=== PATIENT | female | born 1945 | race Caucasian/White ===

== ENCOUNTER 2018-03-30 07:48 | Day surgery (SDC) | payer OTHER, MEDICARE ==
[2018-03-28 11:34] VITALS: BMI 36.6
[2018-03-30] MEDS ORDERED: CYCLOPENTOLATE 2% OPHTH SOLN 2 ML BOTTLE ONE (08:17)
[2018-03-30] MEDS ORDERED: PHENYLEPHRINE 2.5% OPHTH SOLN 15 ML BOTTLE ONE (08:17)
[2018-03-30] MEDS ORDERED: TROPICAMIDE 1% OPHTH SOLN 15 ML BOTTLE ONE (08:17)
[2018-03-30] MEDS ORDERED: CIPROFLOXACIN 0.3% EYE DROPS 5 ML BOTTLE ONE (08:17)
[2018-03-30] MEDS ORDERED: LIDOCAINE 1% P/F 10 MG/ML VIAL ONE (09:46)
[2018-03-30] MEDS ORDERED: CARBACHOL 0.01% INTRA-OCULAR 1.5 ML VIAL ONE (09:47)
[2018-03-30] MEDS ORDERED: NEO/POLYMYX B SULF/DEXAMETH OPHTHALMIC 5ML BOTTLE ONE (09:47)
[2018-03-30] MEDS ORDERED: TETRACAINE 0.5% OPHTH SOLN 2 ML BOTTLE ONE (09:47)
[2018-03-30] MEDS ORDERED: BSS (NA/CA/MG/K) BALANCED SALT SOLUTION OPHTH SOLN 15 ML BOTTLE ONE (09:47)
[2018-03-30] MEDS ORDERED: MIDAZOLAM HCL 2 MG/2 ML SINGLE DOSE VIAL ONE (10:00)
[2018-03-30 10:56] VITALS: TEMP 97.9
[2018-03-30 11:12] VITALS: BP 143/60; PULSE 69
[2018-03-30] MEDS ORDERED: ACETAMINOPHEN 325 MG TABLET (FP) PO PRN (11:55)
[2018-03-30] MEDS ORDERED: ONDANSETRON 4 MG/2 ML VIAL IVPUSH PRN (11:55)
[2018-03-30] MEDS ORDERED: LACTATED RINGERS SOLUTION 1,000 ML IV SCH (12:00)
--- NOTE | 2018-03-31 12:52 | OP ---
DATE OF OPERATION: 03/30/2018 OPERATIVE PROCEDURE: Lens Phacoemulsification with Posterior Chamber Intraocular Lens Placement Left Eye PREOPERATIVE DIAGNOSIS: Visually Significant Cataract of Left Eye POSTOPERATIVE DIAGNOSIS: Visually Significant Cataract of Left Eye SURGEON: Carlos Hansen M.D. ANESTHESIA: MAC PROCEDURE: The patient was brought to the operating room and placed under monitored anesthesia care by Anesthesia. A drop of Tetracaine was then placed over the left eye. The patient was then prepped and draped in the usual sterile manner. A speculum was then placed over the left eye. The eye was then well irrigated with copious amounts of BSS (balanced salt solution). The operating microscope was then moved into position. A paracentesis was performed using a 15 degree blade. At this point 0.5 mL of 1% preservative-free lidocaine was injected into the anterior chamber. Amvisc plus was then injected into the anterior chamber. A clear corneal incision was then formed using a 2.2 mm keratome. A capsulorrhexis was then performed in a continuous circular fashion beginning with a cystotome, completed with an Utratas forceps. Hydrodissection was then performed using BSS on a cannula. The phaco probe was then introduced through the corneal wound and the cataract was removed using the phaco chop technique. Approximately 3 seconds of absolute phaco time was used. The remaining cortex was then removed using irrigation and aspiration with an I/A probe. The capsule was then filled with regular Amvisc and the capsule was noted to be intact. A previously selected foldable posterior chamber intraocular lens was then injected into the capsule through the corneal wound using a lens injector. It was then dialed into position using a Sinskey hook. The Amvisc was then removed using irrigation and aspiration. Miostat was then injected through the paracentesis to constrict the pupil. The paracentesis and corneal wound were then hydrated and noted to be water tight. A drop of Maxitrol was then placed over the eye. The speculum was removed and clear shield was taped over the eye. The patient tolerated the procedure well and there were no surgical complications. The patient was asked to follow up in my office the next day. CARLOS HANSEN M.D. ARIELLA/[id number]
== END 2018-03-30 11:30 | disposition home or self-care (01) ==
LOC: FASU 07:48
PROVIDERS: ATTEND Ophthalmology
PROC: 08RK3JZ Replacement of Left Lens with Synthetic Substitute, Percutaneous Approach (ICD-10-PCS; principal; 2018-03-30 10:24)
DX: H26.8 Other specified cataract (principal)

== ENCOUNTER 2018-04-01 08:16 | Emergency (ER) | payer OTHER, MEDICARE ==
--- NOTE | 2018-04-01 08:19 | PDOC ---
History of Present Illness - General Chief Complaint: Nasal Bleeding Stated Complaint: NOSE BLEED History Source: Patient, EMS, Family Exam Limitations: No Limitations - History of Present Illness Initial Comments: 04/01/18 08:32 72 yof with h/o HTN, HLD, CAD s/p coronary bypass, arthritis s/p THR, COPD, NHL on IVIG tx, cataracts presenting with acute onset of right sided epistaxis this morning at 630AM, since stopped with compression. she states she woke up and was coming downstairs, when her nose started to bleed. episode lasted x 30 minutes after compression. h/o nosebleeds, but not this severe. she has been experiencing URI sx and congestion/cough x 1 week. she has been blowing her nose. denies digital manipulation. of note, 3 days ago she had left eye cataract surgery, uncomplicated. she notes no use of plavix or NOACS/warfarin. only uses ASA. No new changes in medications. Allergies: None Past Medical History: HTN, HLD, CAD s/p coronary bypass, arthritis s/p THR, COPD , NHL on IVIG tx Social history: Lives with family. No tobacco, ETOH or drug use. Surgical history: cataract surgery, THR, coronary bypass. ROS General Medical GENERAL/CONSTITUTIONAL: No fever or chills. No weakness. no sweats. HEAD, EYES, EARS, NOSE AND THROAT: No change in vision or hearing. No ear pain or discharge. No sore throat or mouth pain. No difficulty swallowing. + congestion. +epistaxis. CARDIOVASCULAR: No chest pain or palpitations, syncope or edema. RESPIRATORY: No SOB, hemoptysis. +mild cough GASTROINTESTINAL No nausea/vomiting. No diarrhea or constipation. no abdominal pain MUSCULOSKELETAL: No joint or muscle swelling or pain. No neck or back pain. SKIN: No rash or changes in skin color or lesions. NEUROLOGIC: No headache, or LOC. no neurologic changes. HEMATOLOGIC/LYMPHATIC: No anemia, easy bruising/bleeding, or history of blood clots. ALLERGIC/IMMUNOLOGIC: No allergies All other systems reviewed and negative, or as documented in HPI. PE: General: Well appearing, awake and alert, NAD. HEENT: NCAT, PERRL, EOMI, clear conjunctiva, anicteric, moist mucus membranes, clear oropharynx. +right nare with dried blood, no active epistaxis on close evaluation. Airway patent, normal phonation. Uvula midline. No sinus tenderness , Neck: neck supple, FROM Resp: CTAB, normal and even respirations, no respiratory distress CVS: RRR, no murmurs, 2+ peripheral pulses throughout, no peripheral edema Abdomen: soft, NTND, no rebound or guarding. No CVAT. Back: nontender, normal inspection and ROM MSK: no edema, MORRISON x4, ROM intact. Neuro: alert Skin: warm and well perfused, cap refill <2 sec, normal color 04/01/18 08:32 04/01/18 08:37 Past History - Past Medical History Allergies/Adverse Reactions: Allergies Allergy/AdvReac Type Severity Reaction Status Date / Time No Known Allergies Allergy Verified 04/01/18 08:19 Home Medications: Ambulatory Orders Acyclovir [Zovirax -] 400 mg PO BID 03/28/18 Albuterol Sulfate Inhaler - [Ventolin Hfa Inhaler -] 1 - 2 inh PO QID PRN Aspirin [Adult Aspirin] 81 mg PO DAILY 03/28/18 Atorvastatin Ca [Lipitor] 40 mg PO HS 03/28/18 Losartan Potassium [Cozaar -] 50 mg PO DAILY 03/28/18 Metoprolol Succinate [Toprol Xl] 25 mg PO HS 03/28/18 Sertraline HCl [Zoloft] 100 mg PO DAILY 03/28/18 Anemia: No Asthma: Yes Cancer: Yes (LYMPHOMA) Cardiac Disorders: Yes (CAD) CVA: No COPD: No CHF: No Dementia: No Diabetes: No GI Disorders: No Disorders: No HTN: Yes Hypercholesterolemia: No Liver Disease: No Seizures: No Thyroid Disease: No - Surgical History Abdominal Surgery: No Appendectomy: No Cardiac Surgery: Yes (CABG 2011-) Cholecystectomy: No Lung Surgery: No Neurologic Surgery: No Orthopedic Surgery: Yes (Right Hip Replacement 2015) - Suicide/Smoking/Psychosocial Hx Smoking Status: No Smoking History: Former smoker Years of Tobacco Use: 25 Have you smoked in the past 12 months: No Number of Cigarettes Smoked Daily: 40 If you are a former smoker, when did you quit?: 2002 Hx Alcohol Use: No Drug/Substance Use Hx: No Substance Use Type: None Hx Substance Use Treatment: No Medical Decision Making - Medical Decision Making 04/01/18 08:36 hpi as documented most likely anterior epistaxis, no e/o posterior epistaxis, clear oropharynx. VS reviewed, mildly hypertensive, but did not take AM meds; otherwise wnl, no hypoxia or respiratory distress. no blood thinners or antiplatelet agents, only ASA epistaxis controlled prior to presentation via EMS. likely sinus congestion/cough and URI sx as precipitant as well as recent cold/ dry weather leading to frail capillaries bleeding has been controlled without recurrence here on close monitoring and observation in the ED x 1 hours. supportive care, avoid digital manipulation and heavy nose blowing compression if bleeding recurs, return if bleeding worsens, syncope, cp/sob or dizziness. nasal saline sprays to moisturize passages, OTC med QID, also available with nasal spray bottles moisturized/humidified air. ENT referral, PCP followup as needed. Pt to be discharged in stable condition. Patient and family made aware of impression and plan, return precautions discussed (including but not limited to worsening pain or symptoms), fevers, or signs of infection, chest pain, respiratory distress, inability to tolerate oral intake, dehydration, syncope, or neurologic changes). Follow up with PMD and/or specialist as recommended, follow up information provided, take medications as instructed for duration of time. continue with supportive care, avoid triggers and precipitants. Patient does not suffer from an acute life-threatening medical condition at this time she is safe for outpatient follow-up. 04/01/18 08:41 04/01/18 09:03 *DC/Admit/Observation/Transfer Diagnosis at time of Disposition: Right-sided epistaxis - Discharge Dispostion Disposition: HOME Condition at time of disposition: Stable Decision to Admit order: No - Referrals Referrals: Sajan Meek MD [Staff Physician] - - Patient Instructions Printed Discharge Instructions: DI for Nosebleed Additional Instructions: supportive care, avoid digital manipulation and heavy nose blowing with your cold. compression over nasal bridge if bleeding recurs, return if bleeding worsens, syncope/passing out, chest pain, respiratory distress or dizziness. nasal saline sprays to moisturize passages, four times a day, also available with nasal spray bottles over the counter, some have been provided to you as well. moisturized/humidified air. ENT referral given, primary doctor followup as well. - Post Discharge Activity
[2018-04-01 08:24] VITALS: BP 158/68; PULSE 83; TEMP 98.8; BMI 29.1
== END 2018-04-01 09:21 | disposition home or self-care (01) ==
LOC: FER 08:16
DX: R04.0 Epistaxis (principal); J44.9 Chronic obstructive pulmonary disease, unspecified; I10 Essential (primary) hypertension; E78.5 Hyperlipidemia, unspecified; I25.10 Atherosclerotic heart disease of native coronary artery without angina pectoris
CPT/HCPCS: 99281-25

== ENCOUNTER 2018-06-22 07:38 | Day surgery (SDC) | payer OTHER, MEDICARE ==
[2018-06-17 14:45] VITALS: BMI 36.6
[2018-06-22] MEDS ORDERED: PHENYLEPHRINE 2.5% OPHTH SOLN 15 ML BOTTLE ONE (08:21)
[2018-06-22] MEDS ORDERED: TROPICAMIDE 1% OPHTH SOLN 15 ML BOTTLE ONE (08:21)
[2018-06-22] MEDS ORDERED: CIPROFLOXACIN 0.3% EYE DROPS 5 ML BOTTLE ONE (08:21)
[2018-06-22] MEDS ORDERED: CYCLOPENTOLATE 2% OPHTH SOLN 2 ML BOTTLE ONE (08:21)
[2018-06-22] MEDS ORDERED: CIPROFLOXACIN 0.3% EYE DROPS 5 ML BOTTLE OD ONE ×3 (08:30→08:40)
[2018-06-22] MEDS ORDERED: TROPICAMIDE 1% OPHTH SOLN 15 ML BOTTLE OD ONE ×3 (08:30→08:40)
[2018-06-22] MEDS ORDERED: CYCLOPENTOLATE 2% OPHTH SOLN 2 ML BOTTLE OD ONE ×3 (08:30→08:40)
[2018-06-22] MEDS ORDERED: PHENYLEPHRINE 2.5% OPHTH SOLN 15 ML BOTTLE OD ONE ×3 (08:30→08:40)
[2018-06-22] MEDS ORDERED: BSS (NA/CA/MG/K) BALANCED SALT SOLUTION OPHTH SOLN 15 ML BOTTLE ONE (09:50)
[2018-06-22] MEDS ORDERED: CARBACHOL 0.01% INTRA-OCULAR 1.5 ML VIAL ONE (09:51)
[2018-06-22] MEDS ORDERED: ACETAMINOPHEN 325 MG TABLET (FP) PO PRN (10:34)
[2018-06-22] MEDS ORDERED: ACETAMINOPHEN 325 MG TABLET (FP) ONE (10:34)
[2018-06-22] MEDS ORDERED: ONDANSETRON 4 MG/2 ML VIAL IVPUSH PRN (10:34)
[2018-06-22] MEDS ORDERED: oxyCODONE HCL 5 MG TABLET PO PRN (10:34)
[2018-06-22 10:45] VITALS: TEMP 97.7
[2018-06-22] MEDS ORDERED: LACTATED RINGERS SOLUTION 1,000 ML IV SCH (10:45)
[2018-06-22 10:46] VITALS: PULSE 68
--- NOTE | 2018-06-22 11:06 | OP ---
DATE OF OPERATION: 06/22/2018 OPERATIVE PROCEDURE: Lens Phacoemulsification with Posterior Chamber Intraocular Lens Placement, Right Eye PREOPERATIVE DIAGNOSIS: Visually Significant Cataract of Right Eye POSTOPERATIVE DIAGNOSIS: Visually Significant Cataract of Right Eye SURGEON: Carlos Hansen M.D. ANESTHESIA: MAC PROCEDURE: The patient was brought to the operating room and placed under monitored anesthesia care by Anesthesia. A drop of Tetracaine was then placed over the right eye. The patient was then prepped and draped in the usual sterile manner. A speculum was then placed over the right eye. The eye was then well irrigated with copious amounts of BSS (balanced salt solution). The operating microscope was then moved into position. A paracentesis was performed using a 15 degree blade. At this point 0.5 mL of 1% preservative free-lidocaine was injected into the anterior chamber. Amvisc plus was then injected into the anterior chamber. A clear corneal incision was then formed using a 2.2 mm keratome. A capsulorrhexis was then performed in a continuous circular fashion beginning with a cystotome completed with an Utratas forceps. Hydrodissection was then performed using BSS on a cannula. The phaco probe was then introduced through the corneal wound and the cataract was removed using the phaco chop technique. Approximately 3 seconds of absolute phaco time was used. The remaining cortex was then removed using irrigation and aspiration with an I/A probe. The capsule was then filled with regular Amvisc and the capsule was noted to be intact. A previously selected foldable posterior chamber intraocular lens was then injected into the capsule through the corneal wound using a lens injector. It was then dialed into position using a Sinskey hook. The Amvisc was then removed using irrigation and aspiration. Miostat was then injected through the paracentesis to constrict the pupil. The paracentesis and corneal wound were then hydrated and noted to be water tight. A drop of Maxitrol was then placed over the eye. The speculum was removed and clear shield was taped over the eye. The patient tolerated the procedure well and there were no surgical complications. The patient was asked to follow up in my office the next day. CARLOS HANSEN M.D. ARIELLA/[id number]
[2018-06-22 11:10] VITALS: BP 129/47
== END 2018-06-22 11:15 | disposition home or self-care (01) ==
LOC: FASU 07:38
PROVIDERS: ATTEND Ophthalmology
PROC: 08RJ3JZ Replacement of Right Lens with Synthetic Substitute, Percutaneous Approach (ICD-10-PCS; principal; 2018-06-22 10:08)
DX: H26.8 Other specified cataract (principal)

== ENCOUNTER 2023-04-30 10:16 | Emergency (ER) | payer OTHER, MEDICARE ==
[2023-04-30 10:29] VITALS: BP 173/69; PULSE 70; RESP 19; TEMP 98.5; BMI 36.3
[2023-04-30] MEDS ORDERED: ACETAMINOPHEN 500 MG TABLET (FP) ONE (11:02)
[2023-04-30] MEDS: ACETAMINOPHEN 500 MG TABLET (FP) PO ONE (11:15)
== END 2023-04-30 12:15 | disposition home or self-care (01) ==
LOC: FER 10:16
DX: M25.562 Pain in left knee (principal)
CPT/HCPCS: 73562-TC-LT-FY; 93971-TC